=== PATIENT | female | born 1975 | race Caucasian/White ===

== ENCOUNTER 2017-07-22 20:12 | Emergency (ER) | payer SELFPAY ==
--- NOTE | 2017-07-22 20:36 | ED Physician Documentation ---
Wrist Injury - HISTORIAN Historian: patient - HPI Stated Complaint: Right Wrist Pain Chief Complaint: Upper Extremity Injury Onset: days ago (3) Where: home Severity: moderate Duration: persistent since Context: denies: fall, blow, crush Location of Injury: R hand, R wrist Modifying Factors: pain on movement Further Comments: yes (she states she has had carpel tunnel surgery on wrist ( 2011) and she started having pain in wrist and hand 3 days ago. Denies any injury. 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 ) She has tried OTC meds with no relief) - ROS CONST: no problems NEURO: none CVS/RESP: none - PAST HX Past History: none Immunizations: UTD Allergies/Adverse Reactions: Allergies Allergy/AdvReac Type Severity Reaction Status Date / Time acetaminophen [From Vicodin] Allergy Verified 07/22/17 20:22 hydrocodone bitartrate Allergy Verified 07/22/17 20:22 [From Vicodin] Home Medications: Ambulatory Orders Medication Instructions Recorded NK [NK] 07/22/17 - SOCIAL HX Smoking History: non-smoker Alcohol Use: none Drug Use: none - FAMILY HX Family History: none - VITAL SIGNS Vital Signs: Vital Signs Temp Pulse Resp BP Pulse Ox 88 18 115/73 97 07/22/17 20:15 07/22/17 20:15 07/22/17 20:15 07/22/17 20:15 - REVIEWED ASSESSMENTS Nursing Assessment Reviewed: Yes Vitals Reviewed: Yes Wrist Physical Exam - Physical Exam General Appearance: no acute distress Hand: nml inspection, no evidence of FB, tenderness (palm and wrist with flexion or palpation. Cap refill + sensation + FROM ) Wrist: normal inspection, no evidence of injury, normal ROM Neuro: sensation nml, motor nml. No: digital nerve deficit, decreased fine touch Vascular: No: no vascular compromise, pallor, abnml cap refill Tendon: tendon function nml Forearm/Elbow/Arm: uninjured above wrist Skin: warm/dry, normal color Head/ENT: nml inspection Neck/Back: nml inspection Resp/CVS: chest non-tender, breath sounds nml, heart sounds nml, no resp. distress, lungs clear, reg. rate & rhythm Abdomen: non-tender ED Results Lab/Radiology - Radiology Radiology Impressions: Right wrist 3 views History: Pain Findings: The right wrist is unremarkable without fracture, dislocation, or arthropathy. Electronically signed on Jul 22, 2017 9:08:36 PM HIGH SCHOOL GUIDANCE COUNSELOR by: David Hurtado Right hand 3 views History: Pain Findings: The right hand is unremarkable without fracture, dislocation, arthropathy, or focal bone lesion. Electronically signed on Jul 22, 2017 9:08:01 PM HIGH SCHOOL GUIDANCE COUNSELOR by: David Hurtado Discharge Clincal Impression: Wrist pain Qualifiers: Laterality: right Qualified Code(s): M25.531 - Pain in right wrist Referrals: Primary Doctor,No [Primary Care Provider] - 2 Days Additional Instructions: 1. OTC meds for pain 2. Follow up with PCP in 2-4 days for further eval 3. Rest 4. Return to ER for any increasing symptoms Condition: Stable Disposition: 01 HOME, SELF-CARE Decision to Admit: NO Date of Decison to Admit: 07/22/17 Decision Time: 21:13
[2017-07-22 20:48] VITALS: BP 115/73
--- NOTE | 2017-07-23 05:15 | Diagnostic Imaging Report ---
RAJI HOSKINS [facility] [address] [facility].[address] 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 Electronically signed on Jul 22, 2017 9:08:36 PM DRYING TUNNEL OPERATOR by: David BUSCH
--- NOTE | 2017-07-23 05:16 | Diagnostic Imaging Report ---
RAJI HOSKINS [facility] [address] [facility].[address] 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 Electronically signed on Jul 22, 2017 9:08:01 PM FINISHER COLD ROLLING by: David BUSCH
== END 2017-07-22 21:16 | disposition home or self-care (01) ==
LOC: ED 20:12
DX: M25.531 Pain in right wrist (principal)
CPT/HCPCS: 73110; 73130; 99282

== ENCOUNTER 2017-09-22 09:18 | Emergency (ER) | payer SELFPAY ==
--- NOTE | 2017-09-22 09:24 | ED Physician Documentation ---
Low Back Pain - HISTORIAN Historian: patient - HPI Stated Complaint: low back pain at work yesterday Chief Complaint: Low Back Pain/ Injury History: back pain Onset: days ago (1) Duration: continues in ED Recent Injury: No Context: other (she states as she was standing she noted what felt like an explosion ) Where: work Severity: moderate Quality: sharp Associated Symptoms: difficulty walking. denies: fever, chills, sweating, constipation, incontinence, nausea, vomiting, problems urinating, light- headedness, dizziness Worsened By:: movement to RT flexion, other (walking or attempting to reach for anything pain increases ) Relieved By: nothing Further Comments: yes (She reports she was at work late yesterday and when she went to stand from a bent position she did feel like what she can only explain as an explosion. She states that she almost "fell to my knees" she denies any aide with OTC meds. She denies any loss of control of bowel or bladder. She denies any previous back injury. She is noting this happened at work and they are aware of the injury. She has pain with palpation and she has pain that is inreased with walking and when she tries to reach out for things) - ROS CONST: no problems - PAST HX Past History: other Other History: other Surgeries/Procedures: none Immunizations: UTD Allergies/Adverse Reactions: Allergies Allergy/AdvReac Type Severity Reaction Status Date / Time acetaminophen [From Vicodin] Allergy Intermediate Verified 09/22/17 09:42 hydrocodone bitartrate Allergy Intermediate Itchy Skin Verified 09/22/17 09:42 [From Vicodin] Home Medications: Ambulatory Orders Medication Instructions Recorded NK [NK] 07/22/17 - SOCIAL HX Smoking History: non-smoker - FAMILY HX Family History: none - VITAL SIGNS Vital Signs: Vital Signs Temp Pulse Resp BP Pulse Ox 98.0 F 80 16 118/70 97 09/22/17 11:30 09/22/17 11:30 09/22/17 11:30 09/22/17 11:30 09/22/17 11:30 - REVIEWED ASSESSMENTS Nursing Assessment Reviewed: Yes Vitals Reviewed: Yes Progress - Progress Progress: 1035: sitting in the chair at bedside (per her request) states pain is " slightly improved" DG ED Results Lab/Radiology - Orders Orders: ED Orders Category Date Time Status LUMBAR SPINE WITH OBLIQUES [L SPINE 4 VIEWS] [RAD] Stat Exams 09/22/17 Completed Ketorolac Tromethamine [Toradol] Med 09/22/17 09:37 Discontinued 60 mg IM NOW ONE Orphenadrine Citrate [Norflex] Med 09/22/17 09:37 Discontinued 60 mg IM NOW ONE methylPREDNISolone ACETATE [Depo-Medrol] Med 09/22/17 09:38 Discontinued 40 mg IM NOW ONE Low Back Pain/Injury - Physical Exam General Appearance: no acute distress, alert EENT: eye inspection normal, ENT inspection normal, pharynx normal Neck: non-tender Resp/CVS: chest non-tender, breath sounds nml, heart sounds nml, no resp. distress, lungs clear, reg. rate & rhythm Abdomen: non-tender, no organomegaly Back: other (pain with flexion forward. right lateral bending or twisting. Pain that is "terrible" when she reaches out arms and attmepts to bend over forward. Denies pain in any other capacity. ) Straight Leg Raising: Negative Left, Negative Right Neuro/Psych: oriented x3, motor nml, sensation nml, bilat. doriflexion nml, reflexes nml, mood/affect nml Skin: warm/dry, normal color Extremities: non-tender, normal range of motion, no evidence of injury, no edema Discharge Clincal Impression: Low back pain Qualifiers: Chronicity: acute Back pain laterality: right Sciatica presence: without sciatica Qualified Code(s): M54.5 - Low back pain Referrals: Primary Doctor,No [Primary Care Provider] - 2 Days Comments: 1. Cyclobenzaprine 10 mg take 1 by mouth every 8 hours as needed for pain 2. Medrol Dose pack Start in am - take as directed 3. Tramodol 50 mg - take 1 by mouth every 8 hours as needed for pain 4. Heat/Ice to back 5. Return to PCP in 2 days for follow up on back 6. Return to ER for increasing or uncontrolled pain, loss of control of bowel or bladder or other concerns Condition: Stable Disposition: 01 HOME, SELF-CARE Decision to Admit: NO Date of Decison to Admit: 09/22/17 Decision Time: 10:49
[2017-09-22] MEDS ORDERED: KETOROLAC TROMETHAMINE 60 MG/2 ML VIAL IM ONE (09:37)
[2017-09-22] MEDS ORDERED: ORPHENADRINE CITRATE 60 MG/2ML IM ONE (09:37)
[2017-09-22] MEDS ORDERED: methylPREDNISolone ACETATE 40 MG/ML VIAL IM ONE (09:38)
--- NOTE | 2017-09-22 10:49 | Diagnostic Imaging Report ---
RIAZ SALAZAR [facility] [address] [facility] [address] [place] [address]. [address] Report Submission Date: September 22, 2017 10:47:24 AM CDT Patient Study Name: DI BUTLER Date: September 22, 2017 10:06:56 AM CDT Modality Type: DX Gender: F Description: SPINE : 73 Institution: [facility] Physician: RIAZ SALAZAR 4 views the lumbar spine Clinical history: Low back pain Findings: The pedicles are intact. Alignment the lumbar spine normal. The vertebral body height are maintained. The disc spaces are within normal limits. Impression: Negative Electronically signed on September 22, 2017 10:47:24 AM CDT by: Jimenez BUSCH
[2017-09-22 11:39] VITALS: BP 118/70
== END 2017-09-22 10:55 | disposition home or self-care (01) ==
LOC: ED 09:18
DX: M54.5 Low back pain (principal)
CPT/HCPCS: 72110; J1030; J1885; J2360; 96372; 99284

== ENCOUNTER 2018-04-20 06:16 | Emergency (ER) | payer SELFPAY ==
--- NOTE | 2018-04-20 06:57 | ED Physician Documentation ---
Upper Respiratory Symptoms - HISTORIAN Historian: patient - HPI Stated Complaint: ear pain for 2 weeks, cough,sinus pressure Chief Complaint: Earache Onset: days ago (3) Duration: constant Context: denies: recent foreign travel Severity: mild Associated Symptoms: fever, chills, earache, runny nose, sinus pain, sinus drainage, sore throat, productive cough Worsened by Deep Breath: No Further Comments: yes (she reports x 3 days sinus pain and presssure, cough and she did cough this am with blood noted in her drainage. She felt that she had a fever 2 days ago. her cough is productive she is a smoker) - ROS CONST/EYES: denies: weakness CVS/RESP: denies: chest pain, shortness of breath LYMPH: denies: rash NEURO/PSYCH: denies: fainting MS/SKIN: denies: joint pain, rash - PAST HX Lung Disease: none Surgeries/Procedures: other (Gallbladder and ortho ) Immunizations: UTD Allergies/Adverse Reactions: Allergies Allergy/AdvReac Type Severity Reaction Status Date / Time hydrocodone bitartrate Allergy Intermediate Itchy Skin Verified 04/20/18 06:30 [From Vicodin] Home Medications: Ambulatory Orders Medication Instructions Recorded NK 07/22/17 - SOCIAL HX Smoking History: cigarettes Alcohol Use: none Drug Use: none - FAMILY HX Family History: none - VITAL SIGNS Vital Signs: Vital Signs Temp Pulse Resp BP Pulse Ox 97.7 F 95 H 18 121/85 96 04/20/18 06:16 04/20/18 06:16 04/20/18 06:16 04/20/18 06:16 04/20/18 06:16 - REVIEWED ASSESSMENTS Nursing Assessment Reviewed: Yes Vitals Reviewed: Yes Upper Respiratory Symptoms - EXAM General Appearance: no acute distress, alert EENT: eyes nml inspection, nml ENT inspection, pain over sinuses, maxillary, TM dullness (R), TM dullness (L), pharyngeal erythema Neck: normal inspection Respiratory: no resp. distress, breath sounds nml, no pain on inspiration Abdomen: non-tender CVS: reg rate & rhythm, heart sounds normal, no murmur Extremities: non-tender Neuro/Psych: oriented x3 Discharge Clincal Impression: Sinusitis Qualifiers: Sinusitis location: maxillary Chronicity: acute Recurrence: non-recurrent Qualified Code(s): J01.00 - Acute maxillary sinusitis, unspecified Referrals: Primary Doctor,No [Primary Care Provider] - 2 Days Comments: 1. Azithromycin (zpack) take as directed 2. Medrol dose pack as directed 3. Continue OTC meds for pain as directed or fever 4. Warm salt water gargles 5. Follow up with PCP in 2-4 days 6. Return to ER for any concerns Condition: Stable Disposition: 01 HOME, SELF-CARE Decision to Admit: NO Date of Decison to Admit: 04/20/18 Decision Time: 07:00
[2018-04-20 07:22] VITALS: BP 102/68
== END 2018-04-20 07:10 | disposition home or self-care (01) ==
LOC: ED 06:16
DX: J01.00 Acute maxillary sinusitis, unspecified (principal)
CPT/HCPCS: 99282